=== PATIENT | female | born 1985 | race Caucasian/White ===

== ENCOUNTER 2024-11-30 18:16 | Emergency (ER) | payer OTHER, SELFPAY ==
[2024-11-30 18:22] VITALS: BP 114/81
[2024-11-30 18:51] LABS: % Basophils 0.4 % (0-2); % Eosinophils 5.6 % (0-6); % Immature Granulocytes 0.8 % (0-0.5); % Lymphocytes 24.2 % (20.5-51.1); % Monocytes 12.4 % (1.7-9.3); % Neutrophils 56.6 % (42.2-75.2); Absolute Eosinophils 0.5 10^3/uL (0-0.7); Absolute Immature Granulocytes 0.1 10^3/uL (0-0.05); Absolute Lymphocytes 2.1 10^3/uL (1.2-3.4); Absolute Monocytes 1.1 10^3/uL (0.1-0.6); Absolute Neutrophils 4.8 10^3/uL (1.4-6.5); Hematocrit 40.2 % (37.0-47.0); Hemoglobin 13.7 g/dL (12.0-16.0); Mean Corp Hgb Conc. 34.1 g/dL (33.0-37.0); Mean Corpuscular Hgb 27.1 pg (27.0-31.0); Mean Corpuscular Volume 79.6 fL (81.0-99.0); Mean Platelet Volume 8.7 fL (7.4-10.4); Nucleated Red Blood Cells % 0 %; Platelet Count 231 10^3/uL (130-400); Red Blood Cell Count 5.05 10^6/uL (4.20-5.40); Red Cell Dist. Width 13.2 % (11.5-14.5); White Blood Cell Count 8.5 10^3/uL (4.8-10.8)
[2024-11-30 19:06] LABS: ALT (SGPT) 23 U/L (0-35); AST (SGOT) 25 U/L (14-36); Albumin 3.9 g/dl (3.5-5.0); Alkaline Phosphatase 78 U/L (38-126); Blood Urea Nitrogen 13 mg/dl (7-17); Calcium 8.8 mg/dl (8.4-10.2); Carbon Dioxide 22 mmol/L (22-30); Chloride 106 mmol/L (98-107); Glucose 121 mg/dl (70-99); Potassium 3.6 mmol/L (3.5-5.1); Sodium 137 mmol/L (135-145); Total Bilirubin 0.3 mg/dl (0.2-1.3); Total Protein 6.9 g/dl (6.3-8.2); eGFR > 60.00
[2024-11-30 19:17] LABS: Troponin I < 0.012 ng/ml
[2024-11-30 20:32] LABS: COVID-19 Antigen Negative (Negative)
[2024-11-30 20:53] VITALS: BP 108/78
--- NOTE | 2024-11-30 21:36 | ED.GENMED ---
History of Present Illness
General
Chief Complaint: Cold/Flu/URI Symptoms
Time Seen by Provider: 11/30/24 20:00
History of Present Illness
History of Present Illness:
39-year-old female without significant past medical history presenting for cough. Patient reports cough for the past 3 weeks. [facility], was started on amoxicillin. She finished the antibiotic. She was also prescribed a
short course of steroids and cough medication. She does note that she started to feel better, however yesterday felt that the cough worsened. Notes objective fevers and chills. Does report some chest tightness. Denies abdominal pain, nausea,
vomiting, diarrhea. Denies known sick contacts. Denies additional acute medical complaints
Past History
Past History
ED Past Medical History: GERD
ED Past Surgical History: and Tonsilectomy
Social History
Tobacco: Non-smoker
Alcohol: None
Personal:
Living: with family
Employment: Employed
Family History
Family History: Other (Brother had ruptured appendix at age 25.)
Phy Exam
Physical Exam
Physical Exam:
General: Well-appearing, no clinical signs of dehydration, nontoxic and in no acute distress
HEENT: protecting airway
Neck: appears supple
CV: Normal heart rate, regular rhythm
Resp: No accessory muscle use, no increased work of breathing, lungs clear to auscultation bilaterally
Abd: Soft and non-distended, no tenderness to palpation, normal bowel sounds
Extremities: No deformities, no swelling
Neuro: alert, no focal neurologic deficit
: deferred
Rectal: deferred
Psych: Normal affect
Skin: Intact
Sepsis
Sepsis Screening
Sepsis Assessment: Sepsis Ruled Out
Sepsis Screen
Sepsis Screen: Sepsis Ruled Out
Date: 11/30/24
Time: 22:52
Course
Orders/Labs/Results
Orders:
Orders
11/30/24 18:24
Electrocardiogram (*1) Urgent
Reason for Study: Other
Other Reason for Exam: Respiratory Distress
EKG- Treatment ONCE
CR Chest - 2 Views Urgent
Comment:
Reason For Exam: respiratory distress
11/30/24 18:39
Complete Blood Count/With Diff Urgent
Comprehensive Metabolic Panel Urgent
Troponin I Urgent
11/30/24 20:05
COVID-19 Antigen Urgent
Source: Nasal Swab
Influenza A+B Rapid Molecular Urgent
ARIC Source: Nasal Swab
Specimen Description:
11/30/24 21:55
Prednisone [Deltasone] 60 mg .ROUTE .STK-MED ONE
11/30/24 21:58
Prednisone [Deltasone] 60 mg PO NOW STA
12/01/24 08:00
Prednisone [Deltasone] 60 mg PO DAILY
Abnormal Lab Results
11/30/24
18:39
MCV 79.6 L fL
(81.0-99.0)
Abs Immat Gran (auto) 0.1 H 10^3/uL
(0-0.05)
Absolute Monos (auto) 1.1 H 10^3/uL
(0.1-0.6)
Immature Gran % 0.8 H %
(0-0.5)
Monocytes % 12.4 H %
(1.7-9.3)
Glucose 121 H mg/dl
(70-99)
11/30/24 18:39
11/30/24 18:39
Vital Signs
Initial and Last Documented VS:
Initial Vital Signs
Temp Pulse Resp BP Pulse Ox
98.5 F 133 26 114/81 98
11/30/24 18:22 11/30/24 18:22 11/30/24 18:22 11/30/24 18:22 11/30/24 18:22
Last Documented Vital Signs
Temp Pulse Resp BP Pulse Ox
99.9 F 122 18 108/78 96
11/30/24 20:08 11/30/24 20:08 11/30/24 20:08 11/30/24 20:53 11/30/24 20:08
MDM/Problems Addressed
MDM/Problems Addressed:
39-year-old female presenting for persistent cough. Vital signs arrival significant for mild tachycardia.
On exam patient is resting comfortably, no acute distress or discomfort. No respiratory distress. Unremarkable cardiac and pulmonary exam, lungs clear to auscultation. Active dry cough. Continue to suspect viral syndrome, likely bronchitis.
Developing pneumonia is a consideration, so plan for laboratory analysis and chest x-ray imaging. Patient does note some chest tightness, suspect secondary to coughing. EKG obtained, nonischemic without concern for ACS.
21:40 -Labs are unremarkable, no leukocytosis. Chest x-ray without acute cardiopulmonary disease. Continue to suspect bronchitis. Feel stable for discharge with continued outpatient supportive therapy. Will restart patient on steroids. Strict
return precautions communicated and patient verbalized understanding
*EKG
Interpreted by ED Provider?: Yes
EKG Intrepretation Date: 11/30/24
EKG Intrepretation Time: 21:42
Interpretation: normal
Comparison EKG: no changes (04/03/23)
Heart Rate: 113
Rate: tachycardiac
Rhythm: sinus
[place]: normal axis
Interval: normal interval
QRS Pattern: normal QRS
Ischemia: no ischemia
*Critical Care Note
Total Time (30-74mins, 75-104mins- exclusive of procedures): Not Applicable
ED Attending Note
-
Portions of this chart may have been created with voice recognition software.� Occasional wrong word or��sound alike� substitutions may have occurred due to the inherent limitations of voice recognition software.
Discharge Plan
Departure
Patient Disposition: Home (Routine Discharge)
Date of Disposition: 11/30/24
Time of Disposition: 21:44
Patient with high blood pressure during this ER visit?: No
Condition: Good
Discharge Problem:
Cough, Bronchitis
Instructions: Acute Bronchitis, Adult (DC), Viral Upper Respiratory Infection, Adult (DC)
Prescriptions:
New
methylprednisolone [Medrol (Candido)] 4 mg tablets,dose pack
See Rx Instructions PO .COMPLEX Qty: 21 0RF
Rx Instructions:
for 6 days
No Action
PNV b#95-ferrous fumarate-FA [] 1 EACH tablet
1 ea PO DAILY
omeprazole 40 MG capsule,delayed release(DR/EC)
40 mg PO DAILY
ibuprofen 600 MG tablet
600 mg PO Q4HPRN PRN (Reason: cramps) 0RF
oxycodone 5 mg tablet
5 mg PO Q8H PRN (Reason: pain) Qty: 8 0RF
Referrals:
Diallo Overton MD [Family Provider] -
Activity Restrictions/Additional Instructions:
You were seen in the emergency department for cough
You were found to have normal blood work and chest x-ray imaging. We suspect that you have acute bronchitis. You were prescribed steroids.
Please follow-up closely with your primary care physician.
Return to the emergency department for any worsening of your symptoms, or any development of chest pain, difficulty breathing, abdominal pain with persistent vomiting and inability to tolerate food or liquid by mouth (concern for dehydration),
weakness, headache or confusion, fever greater than 100.4, or any additional symptoms that are concerning to you.
Thank you for choosing [facility].
Interventions
Interventions:
*Risk Screen - Suicide Last Done: 11/30/24 18:22
*General Assessment Last Done: 11/30/24 18:22
*Neglect/Abuse Screening Last Done: 11/30/24 18:22
ED- Fall Risk Assessment Last Done: 11/30/24 20:56
*ED COVID-19 Vaccine History Last Done: 11/30/24 18:22
*Nursing Disposition Last Done: 11/30/24 22:25
ED- Pulmonary Assessment Last Done: 11/30/24 20:56
Discharge Date and Time
Discharge Date/Time: 11/30/24 22:26
Print Language: UZBEK
[2024-11-30] MEDS: DELTASONE 60 MG PO (21:59)
== END 2024-11-30 22:26 | disposition home or self-care (01) ==
LOC: EMR 18:16
PROVIDERS: EMERGENCY PHYSICIAN Student in an Organized Health Care Education/Training Program; FAMILY PHYSICIAN Internal Medicine
DX: J40 Bronchitis, not specified as acute or chronic (principal); K21.9 Gastro-esophageal reflux disease without esophagitis
CPT/HCPCS: 99285; 71046; 80053; 84484; 85025; 87502; 87811; 93005

== ENCOUNTER 2025-09-21 16:24 | Observation (INO) | payer OTHER, SELFPAY ==
[2025-09-21] VITALS (11 sets, daily range): BP systolic 98–129; BP diastolic 64–84; BMI 31.3; BMI 29.5
[2025-09-21 10:20] LABS: Glucose - Point of Care 112 mg/dl (70-99)
--- NOTE | 2025-09-21 10:34 | ED.CVA ---
History of Present Illness
General
Chief Complaint: Headache
Time Seen by Provider: 09/21/25 10:20
Onset of Stroke Symptoms
Onset of symptoms known: Yes
Date of onset of symptoms: 09/20/25
Time of onset of symptoms: 21:00
History of Present Illness
History of Present Illness:
40-year-old female with history of frequent migraine headaches presents to the emergency department for evaluation of headache, dizziness, and left-sided tingling. She reports the migraine headache began last night at approximate 9 PM, this morning
at approximately 8:30 AM she noted the onset of palpitations, dizziness, and left-sided tingling. Has never had these features with a migraine. Took Excedrin this morning without relief. Denies photophobia, nausea, or vomiting. Mother concerned
that she is due to be having difficulty ambulating in her bathroom today.
Past History
Past History
ED Past Medical History: GERD
ED Past Surgical History: and Tonsilectomy
Social History
Tobacco: Non-smoker
Alcohol: None
Personal:
Living: with family
Employment: Employed
Family History
Family History: Other (Brother had ruptured appendix at age 25.)
Review of Systems
Review of Systems
Allergies reviewed?: Yes
All Other Systems: ROS reviewed and negative except as documented in HPI and ROS
Phy Exam
Physical Exam
Physical Exam:
GEN: Well appearing, NAD, WDWN
HEENT: Oral mucosa moist, no scleral icterus, no nasal congestion
Cardiac: Regular rate
Lung: No respiratory distress, no tachypnea
MSK: No gross deformity or injuries
Skin: Good color, no pallor or jaundice, no rashes
Neuro: AO x3; CN II-XII grossly intact. Mild left upper and left lower extremity drift, normal sensation throughout, stem mounter strength 4-5 in the left, normal jmlsqw-xf-gmmh and mieg-sv-xxcx x 4, intact visual martin
Psych: Calm, cooperative
Course
Orders/Labs/Results
Orders:
Orders
09/21/25 10:33
Electrocardiogram (*1) Urgent
Reason for Study: TIA/Stroke
CT Head W/o Iv Contrast Urgent
Comment:
Reason For Exam: L sided paresthesia/headache
EKG- Treatment ONCE
09/21/25 10:34
Test Result ONCE
09/21/25 10:35
Magnesium Sulfate 2 Gram/50 ml [Magnesium Sulfate] 2 gram in 50 ml IV NOW
Metoclopramide [Reglan] 10 mg IV NOW STA
09/21/25 10:37
Complete Blood Count/With Diff Urgent
Comprehensive Metabolic Panel Urgent
HCG, Serum Qualitative Screen Urgent
09/21/25 13:38
Ketorolac [Toradol] 15 mg IV NOW STA
Abnormal Lab Results
09/21/25 09/21/25
10:18 10:37
WBC 12.0 H 10^3/uL
(4.8-10.8)
RBC 5.42 H 10^6/uL
(4.20-5.40)
MCV 74.4 L fL
(81.0-99.0)
MCH 24.9 L pg
(27.0-31.0)
Abs Immat Gran (auto) 0.1 H 10^3/uL
(0-0.05)
Absolute Lymphs (auto) 4.4 H 10^3/uL
(1.2-3.4)
Absolute Monos (auto) 0.9 H 10^3/uL
(0.1-0.6)
Total Protein 8.4 H g/dl
(6.3-8.2)
POC Glucose 112 H mg/dl
(70-99)
09/21/25 10:37
09/21/25 10:37
Vital Signs
Initial and Last Documented VS:
Initial Vital Signs
Temp Pulse Resp BP Pulse Ox
97.5 F 73 18 129/82 99
09/21/25 10:19 09/21/25 10:19 09/21/25 10:19 09/21/25 10:19 09/21/25 10:19
Last Documented Vital Signs
Temp Pulse Resp BP Pulse Ox
98.0 F 70 16 124/81 98
09/21/25 11:44 09/21/25 14:30 09/21/25 14:30 09/21/25 14:29 09/21/25 14:30
MDM/Problems Addressed
MDM/Problems Addressed:
CT of the head was reassuring. The patient did not improve despite migraine treatment in the ED. She does have subtle left-sided weakness. At this time differential includes complex migraine versus demyelinating syndrome, less likely CVA given
age and lack of risk factors. Will admit for further workup and MRI
*Pulse Oximetry
SaO2: 99
Oxygen Mode of Delivery: Room air
Patient hypoxic: no
*Critical Care Note
Total Time (30-74mins, 75-104mins- exclusive of procedures): Not Applicable
Update Note
Update Note:
10:33- case d/w attending Dr Randle, agrees w/ [facility] however more likely hemiplegic/complex migraine, will give metoclopramide/magnesium for symptoms
11:20- pt reassessed, symptoms unchanged. Ambulated to restroom assist x 1, still with some L sided tremulousness. Awaiting CT
ED Attending Note
-
Portions of this chart may have been created with voice recognition software.� Occasional wrong word or��sound alike� substitutions may have occurred due to the inherent limitations of voice recognition software.
Discharge Plan
Departure
Patient Disposition: Admit
Date of Disposition: 09/21/25
Time of Disposition: 14:39
Admit to: Med/Surg
Presentation/result/management discussed w/ accepting MD/DO: Hospitalist
Discharge Problem:
Atypical migraine
Prescriptions:
No Action
omeprazole 40 MG capsule,delayed release(DR/EC)
40 mg PO DAILY
fluconazole 150 mg Tablet
150 mg PO Q3D
famotidine 20 mg Tablet
20 mg PO DAILYPRN PRN (Reason: ACID REFLUX )
mjoqlom-mztwpmptkkzyi-jlbrhliw [Excedrin Migraine] 250-250-65 mg Tablet
1 tab PO PRN PRN (Reason: HEADACHE)
escitalopram oxalate 10 mg Tablet
10 mg PO DAILY
Elderberry 200 mg Capsule
200 mg PO DAILY
metoprolol tartrate 25 mg Tablet
12.5 mg PO BID
Referrals:
Diallo Overton MD [Family Provider, Internal Medicine]
Interventions
Interventions:
*Risk Screen - Suicide Last Done: 09/21/25 10:19
*General Assessment Last Done: 09/21/25 11:36
*ED COVID-19 Vaccine History Last Done: 09/21/25 11:36
*ED Influenza Vaccine History Last Done: 09/21/25 11:36
[facility] Fall Risk Assessment Tool Last Done: 09/21/25 10:52
ED- Neurological Assessment Last Done: 09/21/25 11:37
Discharge Date and Time
Print Language: SOMALI
[2025-09-21] MEDS: REGLAN 10 MG IV (10:45)
[2025-09-21] MEDS: MAGNESIUM SULFATE 50 IV (10:47)
[2025-09-21 10:49] LABS: Hematocrit 40.3 % (37.0-47.0); Hemoglobin 13.5 g/dL (12.0-16.0); Mean Corp Hgb Conc. 33.5 g/dL (33.0-37.0); Mean Corpuscular Volume 74.4 fL (81.0-99.0); Nucleated Red Blood Cells % 0 %; Platelet Count 280 10^3/uL (130-400); Red Cell Dist. Width 12.9 % (11.5-14.5)
[2025-09-21 11:06] LABS: HCG, Serum Qualitative Screen Negative
[2025-09-21 11:12] LABS: AST (SGOT) 28 U/L (14-36); Albumin 4.8 g/dl (3.5-5.0); Alkaline Phosphatase 59 U/L (38-126); Blood Urea Nitrogen 13 mg/dl (7-17); Calcium 9.9 mg/dl (8.4-10.2); Carbon Dioxide 22 mmol/L (22-30); Chloride 106 mmol/L (98-107); Glucose 97 mg/dl (70-99); Potassium 4.2 mmol/L (3.5-5.1); Sodium 136 mmol/L (135-145); Total Protein 8.4 g/dl (6.3-8.2); eGFR > 60.00
[2025-09-21 11:21] LABS: ALT (SGPT) 27 U/L (0-35)
[2025-09-21] MEDS: TORADOL 15 MG IV (14:24)
--- NOTE | 2025-09-21 15:14 | HPS.HSE ---
Family Physician
-
Family Physician: Diallo Overton
Chief Complaint
-
Left sided tingling and dizziness
History of Present Illness
Patient is a 40 y/o female past medical history of anxiety and obesity who presents with left sided tingling and dizziness. Patient reports she had a migraine that started around 9PM last night. This morning around 8:30 AM she developed left sided
tingling and dizziness, associated with difficulty ambulating. She took Excedrin this morning without improvement in the headache. She denies neurologic symtpoms associated with her migraines in the past.
Medical History
Past Medical History
Past Medical History: Reports Other
Additional Past Medical History:
Palpitations
Anxiety
Obesity
Past Surgical History: Reports Other
Additional Past Surgical History:
Section
Deviated Septum Repair
Tonsils / Adenoids
Social History
Tobacco: Non-smoker
Alcohol: None
Family History
Family History: Other (Mother: MS diagnosed in her 40s)
Allergies / Home Medications
Allergies reflects when Allergies were last updated in [employer].
Home Medications with original date entered in [employer]
Allergy/Medication List:
Allergies
Allergy/AdvReac Type Severity Reaction Status Date / Time
No Known Allergies Allergy Verified 09/21/25 10:16
Home Medications
omeprazole 40 mg capsule,delayed release 40 mg PO DAILY Gastrointestinal issue 12/08/20
cydpezj-wezaxoxnrsnyh-nmqcfnfx 250 mg-250 mg-65 mg tablet (Excedrin Migraine) 1 tab PO PRN PRN HEADACHE 09/21/25
elderberry fruit 200 mg capsule 200 mg PO DAILY 09/21/25
escitalopram oxalate 10 mg tablet 10 mg PO DAILY 09/21/25
famotidine 20 mg tablet 20 mg PO DAILYPRN PRN ACID REFLUX 09/21/25
fluconazole 150 mg tablet 150 mg PO Q3D 09/21/25
metoprolol tartrate 25 mg tablet 12.5 mg PO BID 09/21/25
Review of Systems
-
A 12 point ROS was completed and negative except as noted: Yes
Constitutional: Denies Fever or Chills
Respiratory: Denies Cough or Trouble Breathing
Cardiac: Reports Palpitations; Denies Chest Pain
Abdomen/GI: Denies Nausea, Vomiting or Diarrhea
Physical Exam
Vital Signs
Vital Signs
Temp Pulse Resp BP Pulse Ox
98.0 F 70 16 124/81 98
09/21/25 11:44 09/21/25 14:30 09/21/25 14:30 09/21/25 14:29 09/21/25 14:30
Physical Exam
General: Comfortable and Conversant
HEENT: Anicteric and Moist mucous membranes
Respiratory: Clear and Non Labored Respirations
Cardiac: S1/S2 and Regular Rhythm
GI: Soft and Non Tender
Rectal: Deferred by Provider
Musculoskeletal: No Clubbing and No Cyanosis
Skin: Warm and Dry
Neuro: Awake, Alert, Oriented and Other (4/5 LUE; Left upper extremity drift)
Psych: Calm
Laboratory Results
-
09/21/25 10:37
09/21/25 10:37
Laboratory Results
Total Bilirubin 0.5 mg/dl (0.2-1.3) 09/21/25 10:37
AST 28 U/L (14-36) 09/21/25 10:37
ALT 27 U/L (0-35) 09/21/25 10:37
Alkaline Phosphatase 59 U/L (38-126) 09/21/25 10:37
Data Reviewed
-
Lab Data: Labs Reviewed by me
Impression/Plan
-
Headache with Left Sided Paresthesia / Weakness, possibly atypical migraine vs MS, low suspicion for acute stroke
-Consult Neurology
-Check Brain MRI with and without contrast
-Defer antiplatelets to Neurology
Vaginal Candidiasis secondary to Levaquin for recent Bartholin gland infection
-Patient took single dose of fluconazole
-Continue topical vaginal miconazole at bedside
Hx Palpitations
-Patient had prior work-up without evidence of arrhythmia
-Continue metoprolol
Anxiety
-Continue Lexapro
DVT proph: SCDs
Code Status: Full Code
--- NOTE | 2025-09-21 15:19 | W.PN.UPDATE ---
Update Note
Progress Note Update
This note serves as an addendum to the H&P by beauty parlor cleaner Gomez CATRACHITANICHOLAS
HPI�
40F Non smoker
PMHX GERD, Palpitation, anxiety
- seen at ER for frequent migraine MONTEZ
- evaluation of headache, dizziness, and left-sided tingling.
- onset of migraine MONTEZ began last night at approximate 9 PM, this morning
- at approximately 8:30 AM she noted the onset of palpitations, dizziness, and left-sided tingling.
- never had these features with a migraine.
- Took Excedrin this morning without relief.
- Mother: concerned that she is due to be having difficulty ambulating in her bathroom today.
ROS
Denies photophobia, nausea, or vomiting.
Relevant VS
Temp Pulse Resp BP Pulse Ox
98.0 F 70 16 124/81 98
09/21/25 11:44 09/21/25 14:30 09/21/25 14:30 09/21/25 14:29 09/21/25 14:30
PE
HEENT: Moist OM
Neck: supple
Lungs: not tachypneic, no wheeze
Cor: RRR S1 S2
Abdomen:�soft NT NG
TECHNICAL ACCOUNT EXECUTIVE: AOO x3
Mild LUEx and LLUx drift
L hand ruby rails developer 4-5 strength
Intact sensation throughout
Normal and symmetric FNT
Grossly intact visual martin
Psych: Nl mood and affect
Relevant Data
11/30/24 09/21/25
18:39 10:37
WBC 12.0 H
Hgb 13.7 13.5
Plt Count 231 280
09/21/25
10:37
BUN 13
Creatinine 0.7
eGFR > 60.00
09/21/25
10:37
HCG, Qual Negative
EKG: report
NORMAL SINUS RHYTHM
LOW VOLTAGE QRS
BORDERLINE ECG
WHEN COMPARED WITH ECG OF 30-Nov-2024 18:34,
VENT. RATE HAS DECREASED by 45 bpm
Confirmed by QUINCY TEAGUE MD ([id number]) on 09/21/2025 1:41:00 PM
HCT: Normal head CT.
ASSESSMENT & PLAN
Migraine MONTEZ
Associated new onset Lt sided paraesthesia Lt UEx and Lee + mild motor weakness LUEx and LLEx drift, mildly weak hand ruby rails developer 4-5 strength
DDX: Complex Migraine vs TIA/CVA vs MS
- NEG HCT
- MONTEZ improved with IV Toradol + IV Metoclopramide + IV Mg 2gm
- Agree with MRI Brain w/wo and MRA H & N w/wo
- Lipids , A1C
- Defer APL to Neuro
Known HX:
HX of palpitation; on chr Metoprol tartrate, check TSH
Anxiety/depression: on Escitalopram
DVT Px: SCD
Full code
OBS TLM
--- NOTE | 2025-09-21 15:49 | CON.NEURO4 ---
Consultation - Neurology 4
-
CONSULTING PHYSICIAN: Dr. Aniket Patterson
REFERRING PHYSICIAN: Dr. Ney Gaspar
DICTATED BY: Dr. Aniket Patterson
DATE/TIME OF REQUEST: 09/21/2025
DATE/TIME OF CONSULTATION: 09/21/2025
Reason for Consultation: Headache
ASSESSMENT AND PLAN:
The patient is a 40 years old female with a past medical history of migraine headaches which according to her occur about twice per month and last for about 3 to 4 days. The patient also complains of numbness and weakness of the left upper and
lower extremities today. The last known normal was at 9 PM last night.. The patient also has difficulty walking since this episode of headache as started. The patient also complains of cervical muscle spasm and a pressure-like headache which
looks more like a tension-type headache. Patient says that she has a lot of stress at work. She denies any speech difficulty or any facial droop.
Patient appears to have a headache which is likely a migraine headache. The patient received Toradol 15 mg IV x 1, Reglan 10 mg IV x 1 and IV magnesium sulfate 2 g x 1 in the ED with some improvement in the headache to the point that the patient is
able to sit up in bed. The patient states that the headache is about 5/10 in severity which earlier was 8 out of 10 in severity. The patient also has a history of cervical muscle spasm and a lot of stress at work, which can also cause a
tension-type headache, and the patient complains of a lack of sleep and a stressful job. The patient likely has a combination of both a migraine and a tension type headache.
. Flexeril 5 mg TID PRN
. CT head is unremarkable.
. MRI of the brain with and without contrast
I had detailed discussion with the patient and her mother regarding the assessment and the management plan and they verbalized understanding of our discussion.
History of Present Illness:
The patient is a 40 years old female with a past medical history of migraine headaches which according to her occur about twice per month and last for about 3 to 4 days. The patient also complains of numbness and weakness of the left upper and
lower extremities today. The last known normal was at 9 PM last night.. The patient also has difficulty walking since this episode of headache as started. The patient also complains of cervical muscle spasm and a pressure-like headache which
looks more like a tension-type headache. Patient says that she has a lot of stress at work. She denies any speech difficulty or any facial droop.
Past Medical History: GERD
Surgical History: and tonsillectomy
Social History:
Tobacco: Non-smoker
Alcohol: None
Allergies: NKDA.
Review of Systems:
The 10 point review systems were negative aside from as given the above history of present illness.
Neurologic Examination:
Alert and oriented x 3,
Speech is clear,
The cranial nerves II through XII are grossly intact,
The motor strength is grossly 4/5 in the left upper and lower extremities and the motor strength is grossly 5/5 in the right upper and lower extremities,
The sensation is grossly intact,
The cerebellar examination does not show limb ataxia.
Vital Signs and Labs
-
Vital Signs and Labs:
Vital Signs
Temp Pulse Resp BP Pulse Ox
36.7 C 70 16 124/81 98
09/21/25 11:44 09/21/25 14:30 09/21/25 14:30 09/21/25 14:29 09/21/25 14:30
Lab Results
09/21/25 10:37
09/21/25 10:37
Sodium 136 mmol/L (135-145) 09/21/25 10:37
Potassium 4.2 mmol/L (3.5-5.1) 09/21/25 10:37
BUN 13 mg/dl (7-17) 09/21/25 10:37
Glucose 97 mg/dl (70-99) 09/21/25 10:37
Calcium 9.9 mg/dl (8.4-10.2) 09/21/25 10:37
Medications
-
Home Medications
�Medication �Instructions �Recorded
omeprazole 40 mg capsule,delayed 40 mg PO DAILY Gastrointestinal 12/08/20
release issue
xeicopq-imubsdasigmel-jwlezmao 250 1 tab PO PRN PRN HEADACHE 09/21/25
mg-250 mg-65 mg tablet (Excedrin
Migraine)
elderberry fruit 200 mg capsule 200 mg PO DAILY 09/21/25
escitalopram oxalate 10 mg tablet 10 mg PO DAILY 09/21/25
famotidine 20 mg tablet 20 mg PO DAILYPRN PRN ACID REFLUX 09/21/25
fluconazole 150 mg tablet 150 mg PO Q3D 09/21/25
metoprolol tartrate 25 mg tablet 12.5 mg PO BID 09/21/25
--- NOTE | 2025-09-21 17:10 | EDCM ---
Addendum entered by Christina Boss 09/21/25 17:14:
OBS form reviewed and signed, copy left with pt. No hx VN or SNF.
Original Note:
Reviewed chart and met with pt bedside in ED. Lives with her in 2 [address], [address]. First floor half bath, full flight to second floor bedroom and full bath.
Independent in ADLs, personal care and ambulation at baseline, no assistive device. No DME in home.
Confirms prescription coverage.
PCP: Diallo Overton
Pharmacy: [facility] Valentine
Anticipate discharge home, CM will continue to follow for any discharge planning needs.
[2025-09-21 17:12] LABS: TSH 2.00 uIU/ml (0.47-4.68)
[2025-09-21] MEDS: TORADOL 10 MG IV (18:11)
[2025-09-21] MEDS: LOPRESSOR 12.5 MG PO (20:24)
[2025-09-21] MEDS: TYLENOL 650 MG PO (20:25)
[2025-09-21] MEDS: MONISTAT 7 VAGINAL CREAM 1 APPLIC VAG (22:48)
[2025-09-21] MEDS: PEPCID 20 MG PO (23:21)
[2025-09-22 04:00] VITALS: BP 105/73
[2025-09-22] MEDS: TORADOL 10 MG IV (04:51)
--- NOTE | 2025-09-22 07:35 | W.PN.HOSP.TC ---
Today's Communication/Plan
-
Discharged with amitriptyline 10 mg
Continue Flexeril as needed
Watch for sedation as a side effect for amitriptyline.
Follow-up with outpatient neurologist within a week of discharge.
Assessment / Plan
Assessment / Plan
40-year-old female non-smoker with a past medical history of anxiety, obesity, migraine who presented with left-sided tingling and dizziness. The episode was associated with nausea, light sensitivity. She tried Excedrin which did not relieve the
pain arrived to the ED for her migraine episode.
# Acute on chronic migraine:
Vital: BP 112/76, temp 97.5, RR 12, saturation 98 with room air.
On exam: she does not have facial droop, strength 5/ 5
Labs: WBC 12 high--9, hemoglobin 13.5--12.5,
Chemistry: Sodium, potassium, chloride BUN, bicarb WNL
Lipid panel: Triglycerides 188 high, VLDL 37 high, TSH 1.71 within normal limit
COVID-negative, flu negative, blood glucose 112
On 09/[address] without IV contrast: Normal head CT.
EKG on admission:
P-R Int : 164 ms ,QRS Dur : 76 ms ,QT Int : 434 ms ,P-R-T Axes : 33 22 42 degrees, QTcB Int : 461 ms
NORMAL SINUS RHYTHM, LOW VOLTAGE QRS, BORDERLINE ECG
Neurologist consulted with recommendation of Flexeril (cyclobenzaprine skeletal muscle relaxant), amitriptyline prescribed and advised him to follow-up with [facility] with Dr. Patterson in future
Medications list includes acetaminophen, escitalopram oxalate 10 mg, metoclopramide 10 mg, metoprolol 12.5 mg,
sumatriptan ORAL as needed for acute attack--neurologist currently avoiding (due to the risk of vasoconstrictive mechanism )with a presentation of strokelike symptoms of the patient
ascvd score -3
Discharged with amitriptyline 10 mg
Continue Flexeril as needed
Watch for sedation as a side effect for amitriptyline.
Follow-up with outpatient neurologist within a week of discharge.
DVT prophylaxis: ASA
Full code
Disposition Home
Anticipated Discharge: Today
Subjective/Interval History
-
Date of Service: September 22, 2025
40-year-old female with history of frequent migraine headaches yesterday experienced with episode of left headache along with tingling, numbness, blurry vision and patient felt dizzy which made her to arrive to the ER. The episode was associated
with nausea, light sensitivity. She did not take medications for her pain. The numbness and tingling are constant at a point that were worse or difficulty while on walking. She had similar episode in the past 1 year, every month she used to have
2 episodes of migraine each episode stays for a week, relieved with Excedrin Migraine.
Patient had a stress at her work, she is currently working in the daycare, and lack of sleep. At ED she received Toradol 15 mg IV, Reglan 10 mg, magnesium sulfate IV 2 g and felt better.
She is a non-smoker, nonalcoholic, currently not on oral contraceptives.
Overnight the nurse informed that she had a good sleep.
Today morning patient is feeling right side forehead pain radiates towards yarsanism, ear, shoulder. The pain is pressure in nature associated with mild nausea, light sensitivity.
Objective Data
-
Labs:
Laboratory Results
09/22/25
06:48
WBC Pending
Hgb Pending
Hct Pending
Plt Count Pending
Vital Signs:
Vital Signs
Temp Pulse Resp BP Pulse Ox
97.5 F 76 18 105/73 98
09/22/25 04:00 09/22/25 04:00 09/22/25 04:00 09/22/25 04:00 09/22/25 04:00
I&O
09/21/25 09/22/25 09/23/25
06:59 06:59 06:59
Intake Total 480 / 480
Balance 480 / 480
Review of Systems
-
History Source: Patient
All other systems: Reviewed and negative
Physical Exam
-
General: No Apparent Distress
Respiratory: Clear to Auscultation
Cardiac: Regular Rhythm and S1/S2
GI: Soft and Nontender
Genito-urinary: No Costovertebral Tender
Musculoskeletal: No Clubbing, No Cyanosis and No Edema
Skin: Warm
Neuro: AO x 3, Nonfocal/Grossly Intact, Central Nerve's Intact, No Sensory Deficits and DTR's Intact & Symmetrica
Hematologic / Lymphatic: No Lymphadenopathy
Psych: Calm
[2025-09-22 08:00] LABS: Hematocrit 38.4 % (37.0-47.0); Hemoglobin 12.5 g/dL (12.0-16.0); Mean Corp Hgb Conc. 32.6 g/dL (33.0-37.0); Mean Corpuscular Volume 76.5 fL (81.0-99.0); Platelet Count 232 10^3/uL (130-400); Red Cell Dist. Width 13.1 % (11.5-14.5)
[2025-09-22 08:01] VITALS: BP 112/76
[2025-09-22 08:02] LABS: HDL Cholesterol 31 mg/dl; LDL Cholesterol, Calculated 113 mg/dl; Very Low Density Lipoprotein 37 mg/dl (0-30)
[2025-09-22] MEDS: LEXAPRO 10 MG PO (08:30)
[2025-09-22] MEDS: LOPRESSOR 12.5 MG PO (08:30)
--- NOTE | 2025-09-22 09:39 | W.PN.NEURO.1 ---
Addendum entered and electronically signed by Aniket Patterson MD 09/22/25 20:49:
The patient was seen and examined along with the nurse practitioner Jazzy Rocha, and I agree with her assessment and management plan.
The patient says that she is doing well and she denies any focal weakness today. She appears to be in good mood and wants to try amitriptyline in a small dose for migraine prevention. Recommend amitriptyline 10 mg at night. She was told to watch
out for the side effects of amitriptyline including sedation and weight gain.
MRI of the brain with and without contrast did not show any acute intracranial abnormality.
The patient will follow-up in neurology clinic in about 4 weeks
I had detailed discussion with the patient regarding assessment and management plan and she verbalized understanding of our discussion.
Original Note:
Today's Communication / Plan
-
-brain MRI negative for stroke
-would avoid vasoconstricting medications such as triptans and DHE due to stroke like symptoms
-patient would like to try amitriptyline for migraine prevention, will start small dose at 10 mg nightly, watch for sedation, blurry vision, constipation and weight gain
-can follow up with neurology outpatient
-may continue with flexeril as needed, watch for sedation
Neuro Assessment/Plan
Assessment
Patient is a 40 year old female with a history of migraines presenting to [facility] on 09/21/2025 for evaluation of headache, numbness and left-sided weakness.
Brain MRI 09/22/2025: No acute intracranial abnormality noted.
Head CT 09/21/2025: Normal head CT.
Plan
Impression: migraine without aura
-brain MRI negative for stroke
-would avoid vasoconstricting medications such as triptans and DHE due to stroke like symptoms
-patient would like to try amitriptyline for migraine prevention, will start small dose at 10 mg nightly, watch for sedation, blurry vision, constipation and weight gain
-can follow up with neurology outpatient
-may continue with flexeril as needed, watch for sedation
All questions encouraged and answered, plan of care discussed with Dr. Patterson and patient
Subjective/Objective
Subjective Data
Date of Service: September 22, 2025
Migraine is better today, 2/10 pain. No weakness or focal deficits noted. Typically gets 6-8 migraines per month. Prior preventative medications for migraines include Topamax, prior abortive medications include Excedrin, Zofran, Percocet,
cyclobenzaprine, Imitrex and Zomig 5 mg nasal spray.
Objective Data
Vital Signs
Temp Pulse Resp BP Pulse Ox
97.5 F 90 12 112/76 98
09/22/25 08:01 09/22/25 08:01 09/22/25 08:01 09/22/25 08:01 09/22/25 08:01
Lab Results
09/22/25 06:48
09/21/25 10:37
Sodium 136 mmol/L (135-145) 09/21/25 10:37
Potassium 4.2 mmol/L (3.5-5.1) 09/21/25 10:37
BUN 13 mg/dl (7-17) 09/21/25 10:37
Glucose 97 mg/dl (70-99) 09/21/25 10:37
Calcium 9.9 mg/dl (8.4-10.2) 09/21/25 10:37
LDL Cholesterol, Calc 113 mg/dl 09/22/25 06:48
Patient Allergies
No Known Allergies Allergy (Verified 09/21/25 10:16)
Physical Exam
-
General: Comfortable and Appears Stated Age
HEENT: Normocephalic, Atraumatic and Anicteric
Neck: Full Range of Motion
Respiratory: No Dyspnea
Cardiac: No JVD
GI: Non-distended
Skin: Unremarkable
Extremities: No Clubbing, No Cyanosis and No Edema
Psych: Unremarkable
Extended Neurological Exam
Mood & Affect: Mood Unremarkable
Attention Span & Concentration: Awake, Alert, Interactive and No Difficulty with 2 Step Request
Memory: Unremarkable
Speech: Quality Unremarkable, Quantity Unremarkable and Rate of Production Unremarkable
Cranial Nerve II: Left Eye: Visual Cohen Intact
Cranial Nerve II: Right Eye: Visual Cohen Intact
Cranial Nerves III, IV, : Extraocular Movement: Extraocular Movement Full in all Directions
Cranial Nerve VII: Facial Symmetry: Normal Facial Symmetry
Cranial Nerve VIII: Hearing: Unremarkable Hearing to Normal Conversational Volume
Muscle Strength, Overall: Full Throughout
Pronator Drift: No Drift in Upper Extremities and No Drift in Lower Extremities
Coordination: Urjcmh-gdis-mofehd Testing Unremarkable
Data Reviewed
-
CT Head: Report Reviewed and Image Reviewed
MRI Head: Report Reviewed and Image Reviewed
MRA Head: Pending
Medical Test Reports: Report Reviewed
Labs: Report Reviewed
Reviewed with: Physician and Patient
Old Records: Summarized
[2025-09-22 10:54] LABS: Glycohemoglobin (HgbA1c) 5.2 % (4.0-5.9)
[2025-09-22 11:26] VITALS: BP 98/66
[2025-09-22 12:06] VITALS: BP 106/56
[2025-09-22 12:16] VITALS: BP 109/67; PULSE 82; O2SAT 97
--- NOTE | 2025-09-22 20:41 | W.PN.UPDATE ---
Update Note
Progress Note Update
The patient is a 40 years old female with history of migraines who presented to the ED on 09/21/2025 for evaluation of headache along with mild left-sided weakness. Today the patient does not complain of any weakness and her speech is clear, also
she does not have any facial weakness. The patient would like to try amitriptyline for migraine prevention and have advised a small dose of 10 mg nightly. She was told to watch out for the side effects of amitriptyline including sedation and
weight gain.
MRI of the brain with and without contrast did not show an acute intracranial abnormality.
Follow-up in neurology clinic as outpatient in about 4 weeks.
--- NOTE | 2025-09-24 17:36 | W.DCSUMMARY ---
Documented by User: Anthony Linda MD, Resident 09/24/25 17:55
Discharge Summary
Discharge Data
Date of Admission: 09/21/25
Date of Discharge: 09/22/25
-
Pending Results: No
Hospital Course
Discharging Physician : Dr Bridger Seymour MD
Dr Anthony Linda MD
Disposition : Home
Primary care physician : Dr Diallo Ventura MD
Principal Discharge diagnosis : Acute on chronic migraine
Chronic Discharge diagnosis :
Dyslipidemia LDL> 110, while on discharge recommended to follow-up with PCP to consider for statin therapy.
Hospital Course :
On 09/21 40-year-old female non-smoker with a past medical history of anxiety, obesity, migraine presented with left-sided tingling and dizziness. While at the time of admission her vitals are stable, neurological examination cranial nerves were
intact with strength 5/5. Patient was taking Excedrin and did not relieve the pain, at ED she received Toradol 15 mg IV, Reglan 10 mg IV, magnesium sulfate 2 g IV and felt improvement. Neurologist consulted and recommended for cyclobenzaprine
skeletal muscle relaxant along with amitriptyline and recommended to do out patient follow-up in future. 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
triggered her migraine. Patient was stable at the time of discharge. She was on Lovenox subcutaneous along with low-cholesterol diet with full code.
IMPORTANT:
If your symptoms worsen when you get home, go to the Emergency Room if you cannot reach a doctor, or call 911
At this admission her hemoglobin A1c 5.2, triglycerides 188 high, LDL 113, TSH 1.71 normal
Important imaging findings :
On 09/[address]:
no intra or extra axial hemorrhage is appreciated. No midline shift, edema, or abnormal mass effect.
The ventricles and sulci are of normal caliber.
Gerardo and white matter are of normal attenuation.
No areas of transcortical infarction are appreciated.
No displaced skull fracture is seen.
Mastoid air cells are normally aerated. The visualized paranasal sinuses are normally aerated.
On 09/22 brain MRI findings:
No acute intracranial abnormality noted.
Procedure findings : None
Discharge Plan
-
Patient Disposition: Home (Routine Discharge)
Discharge Diagnosis/Procedures: Migraine, vaginal Cindy, anxiety
Condition: Fair
Diet: No restrictions
Activity: No restrictions
Driving Restrictions: As prior to admission
Instructions: Migraines (DC), Headache, Adult (DC)
Referrals:
Aniket Patterson MD [Active, Neurology]
Diallo Overton MD [Family Provider, Internal Medicine]
Additional Discharge Medication Instructions: Discharged with amitriptyline 10 mg
Continue Flexeril as needed
Watch for sedation as a side effect for amitriptyline.
Follow-up with outpatient neurologist within a week of discharge.
Prescriptions:
New
cyclobenzaprine 10 mg Tablet
5 mg PO Q8HPRN PRN (Reason: muscle spasms) 10 Days Qty: 10 0RF
amitriptyline 10 mg Tablet
10 mg PO HS 30 Days Qty: 30 0RF
Continued
omeprazole 40 MG capsule,delayed release(DR/EC)
40 mg PO DAILY
famotidine 20 mg Tablet
20 mg PO DAILYPRN PRN (Reason: ACID REFLUX )
[id number] [Excedrin Migraine] 250-250-65 mg Tablet
1 tab PO PRN PRN (Reason: HEADACHE)
elderberry fruit 200 mg Capsule
200 mg PO DAILY
fluconazole 150 mg Tablet
150 mg PO Q3D Qty: 0 0RF
escitalopram oxalate 10 mg Tablet
10 mg PO DAILY Qty: 0 0RF
metoprolol tartrate 25 mg Tablet
12.5 mg PO BID Qty: 0 0RF
Discharge Orders:
Discharge Patient (As Directed); Ordered 09/22/25
Ordered By: Anthony Linda
Discharge Date and Time
Discharge Date/Time: 09/22/25 13:08
Print Language: MALIAN

Documented by User: Bridger Seymour DO 09/25/25 07:58
Discharge Summary
Discharge Data
Date of Admission: 09/21/25
Date of Discharge: 09/23/25
Total time spent discharging patient (in min): 33
Discharge Plan
-
Patient Disposition: Home (Routine Discharge)
Discharge Diagnosis/Procedures: Migraine, vaginal Cindy, anxiety
Condition: Fair
Diet: No restrictions
Activity: No restrictions
Driving Restrictions: As prior to admission
Instructions: Migraines (DC), Headache, Adult (DC)
Referrals:
Aniket Patterson MD [Active, Neurology]
Diallo Overton MD [Family Provider, Internal Medicine]
Additional Discharge Medication Instructions: Discharged with amitriptyline 10 mg
Continue Flexeril as needed
Watch for sedation as a side effect for amitriptyline.
Follow-up with outpatient neurologist within a week of discharge.
Prescriptions:
New
cyclobenzaprine 10 mg Tablet
5 mg PO Q8HPRN PRN (Reason: muscle spasms) 10 Days Qty: 10 0RF
amitriptyline 10 mg Tablet
10 mg PO HS 30 Days Qty: 30 0RF
Continued
omeprazole 40 MG capsule,delayed release(DR/EC)
40 mg PO DAILY
famotidine 20 mg Tablet
20 mg PO DAILYPRN PRN (Reason: ACID REFLUX )
[id number] [Excedrin Migraine] 250-250-65 mg Tablet
1 tab PO PRN PRN (Reason: HEADACHE)
elderberry fruit 200 mg Capsule
200 mg PO DAILY
fluconazole 150 mg Tablet
150 mg PO Q3D Qty: 0 0RF
escitalopram oxalate 10 mg Tablet
10 mg PO DAILY Qty: 0 0RF
metoprolol tartrate 25 mg Tablet
12.5 mg PO BID Qty: 0 0RF
Discharge Orders:
Discharge Patient (As Directed); Ordered 09/22/25
Ordered By: Anthony Linda
Discharge Date and Time
Discharge Date/Time: 09/22/25 13:08
Print Language: MALIAN
== END 2025-09-22 13:08 | disposition home or self-care (01) ==
LOC: 4 WEST ACU 16:24
PROVIDERS: Physician Assistant; Physician Assistant Medical; ADMITTING PHYSICIAN Internal Medicine; ATTENDING PHYSICIAN Internal Medicine; CONSULT PHYSICIAN Psychiatry & Neurology Neurology; EMERGENCY PHYSICIAN Emergency Medicine; FAMILY PHYSICIAN Internal Medicine
DX: G43.009 Migraine without aura, not intractable, without status migrainosus (principal); R53.1 Weakness; F41.9 Anxiety disorder, unspecified; F32.A Depression, unspecified; B37.31 Acute candidiasis of vulva and vagina; T36.8X5A Adverse effect of other systemic antibiotics, initial encounter; R00.2 Palpitations; Z79.899 Other long term (current) drug therapy; E78.5 Hyperlipidemia, unspecified; Z56.6 Other physical and mental strain related to work
CPT/HCPCS: 70450; 70553; 80053; 80061; 82962; 83036; 84443; 84703; 85025; 85027; 93005; 96365; 96375; 97161; 97165; 99285; A9575; G0378